=== PATIENT | male | born 1955 | race Caucasian/White ===

== ENCOUNTER → 2017-08-16 | Outpatient (CLI) | payer BC ==
[~2017-08-16] MED LIST: 00186-0370-20 IH; ASPI325T6 PO; ASPIRIN 32325 MG/TAB PO; ASPIRIN E.C. 8181 MG PO; BENICAR HCT 251 TAB PO; BENICAR5 MG PO; CEPHALEXIN500 M1 PO; COREG 25MG25 MG/TAB PO; COREG 6.256.25 MG/TA PO; CRESTOR40 MG PO; IMDUR 60MG60 MG/TAB PO; LIPITOR 80MG80 MG PO; LOPRESSOR 550 MG/TAB PO; NITROSTAT0.4 MG/TAB SL; OMEGA-3 FISH1200 MG PO; PLAVIX 75MG TAB75 MG PO; PREDNISONE20 MG PO; PRINZIDE 25 MG-1 TAB PO; PROAIR HFA0.09 MG/AC IH; RANEXA1000 MG PO; VENTOLIN0.09 MG IH; ZESTRIL 10MG10 MG PO
== END ==
LOC: COL.RAD 10:32
DX: R27.0 Ataxia, unspecified (principal); R42 Dizziness and giddiness
CPT/HCPCS: Q9967

== ENCOUNTER → 2018-04-27 | Outpatient (CLI) | payer BC ==
[2018-04-27 23:31] LABS: CORTISOL RANDOM 7 ug/dL (3-20)
[2018-04-28 15:41] LABS: URINE TOTAL VOLUME 2325 mL
[2018-04-28 16:03] LABS: CREATININE, serum 0.91 mg/dL (0.66-1.25); URINE PROTEIN:CREAT RATIO 0.04 (0.00-0.14)
[2018-04-28 16:10] LABS: POTASSIUM 3.6 mmol/L (3.4-5.0)
[2018-04-28 16:14] LABS: URINE CREATININE CLEARANCE 117.4 mL/min (97-137)
[2018-04-28 22:14] LABS: CATECHOLAMINES-HRS COLLECTED 24 (()); URINE VOLUME 2325 (())
[2018-04-28 23:05] LABS: MICROALBUMIN RANDOM 0.9 mg/dL (0.0-1.7)
[2018-05-01 10:46] LABS: RENIN,PLASMA 0.6 ng/mL/h (())
[2018-05-04 16:15] LABS: CORTISOL,URINE 28 mcg/24 h (3.5-45)
== END ==
LOC: COL.LAB 12:11
PROVIDERS: Internal Medicine Interventional Cardiology
DX: I10 Essential (primary) hypertension (principal)

== ENCOUNTER 2020-03-28 08:08 | Day surgery (SDC) | payer MEDICARE, OTHER ==
[~2020-03-28] VITALS: Ht 175.3 cm; Wt 126.9 kg
[2020-03-28] MEDS ORDERED: BYSTOLIC10 MG PO (08:29)
[2020-03-28] MEDS ORDERED: NORVASC 10MG10 MG PO (08:31)
[2020-03-28] MEDS ORDERED: BENICAR HCT 251 TAB PO (08:31)
[2020-03-28] MEDS ORDERED: COUMADIN 22.5 MG/TAB PO (08:32)
[2020-03-28] MEDS ORDERED: COUMADIN 3MG3 MG/TAB PO (08:33)
[2020-03-28] MEDS ORDERED: BREO IH (08:34)
[2020-03-28 09:02] VITALS: BP 128/89; PULSE 80; TEMP 97.8
[2020-03-28 09:13] LABS: INR 2.3 (0.8-3.0); PROTHROMBIN TIME 25.8 SECONDS (9.7-12.8)
[2020-03-28 11:00] VITALS: BP 98/70; PULSE 62
[2020-03-28 11:15] VITALS: BP 116/87; PULSE 63
[2020-03-28 11:30] VITALS: BP 111/82; PULSE 65
[2020-03-28 11:45] VITALS: BP 114/87; PULSE 60
[2020-03-28 12:00] VITALS: BP 119/84; PULSE 59
--- NOTE | 2020-03-28 12:25 | NUR ---
Pt tolerated procedure well, he has been gcs 15 for last hour, with stable vitals, has been able to swallow water with no problem. pt has been ambulatory to with steady gait. I have reviewed dc, rx and fu instructions with pt. Pt has fu with [facility] 04/03 and has an rx for multaq being called in to his pharmacy. pt denies any questions. iv is dc'd with cath intact. pt to exit via wheelchair.
== END 2020-03-28 13:19 | disposition home or self-care (01) ==
LOC: COL.CAR 08:08
PROVIDERS: Internal Medicine Interventional Cardiology
DX: I48.0 Paroxysmal atrial fibrillation (principal); I34.0 Nonrheumatic mitral (valve) insufficiency; I25.10 Atherosclerotic heart disease of native coronary artery without angina pectoris; I49.3 Ventricular premature depolarization; I10 Essential (primary) hypertension; J45.909 Unspecified asthma, uncomplicated; E78.5 Hyperlipidemia, unspecified; I49.5 Sick sinus syndrome; G47.33 Obstructive sleep apnea (adult) (pediatric); Z79.01 Long term (current) use of anticoagulants; Z88.8 Allergy status to other drugs, medicaments and biological substances; Z79.82 Long term (current) use of aspirin; Z95.0 Presence of cardiac pacemaker; Z88.7 Allergy status to serum and vaccine; Z20.828 Contact with and (suspected) exposure to other viral communicable diseases
CPT/HCPCS: J2704; J7030

== ENCOUNTER 2023-10-20 11:29 | Day surgery (SDC) | payer MEDICARE, OTHER ==
[~2023-10-20] VITALS: Ht 175.3 cm; Wt 134.6 kg
[~2023-10-20 11:29] MED LIST changes: +BREO IH; +BYSTOLIC10 MG PO; +COUMADIN 22.5 MG/TAB PO; +COUMADIN 3MG3 MG/TAB PO; +ELIQUIS 5MG PO; +LR 1,000 ML IV SCH; +MULTAQ400 MG PO; +NORVASC 10MG10 MG PO; +THE MEDICINE S200 M2 PO
[2023-10-20] MEDS ORDERED: MASON NATURAL2000 IU PO (11:58)
[2023-10-20] MEDS ORDERED: K2-4545 MCG PO (11:59)
[2023-10-20] MEDS ORDERED: NATURAL MAGNES200 MG PO (12:00)
[2023-10-20] MEDS ORDERED: BYSTOLIC10 MG PO (12:11)
[2023-10-20] MEDS ORDERED: NS Flush 10 ML SYRINGE PRN ICA (12:15)
[2023-10-20 12:21] VITALS: BP 123/93; PULSE 79; TEMP 98.5
[2023-10-20 12:29] LABS: HEMATOCRIT 42.2 % (42.0-52.0); HEMOGLOBIN 14.9 g/dl (13.5-18.0); MEAN CELL VOLUME 88 fl (80.0-100.0); MEAN CORPUSCULAR HEMOGLOBIN 31 pg (27-31); MEAN CORPUSCULAR HGB CONC 35 g/dl (33.0-37.0); MEAN PLATELET VOLUME 11.7 fl (7.4-10.4); PLATELET COUNT 158 K/mm3 (130-400); RED BLOOD COUNT 4.81 M/mm3 (4.20-5.60)
[2023-10-20 12:32] LABS: INR 1.7 (0.8-3.0); PROTHROMBIN TIME 18.5 SECONDS (9.7-12.8)
[2023-10-20 12:34] LABS: PARTIAL THROMBOPLASTIN TIME 38.8 SECONDS (26.0-37.0)
[2023-10-20 12:49] LABS: CALCIUM 9.1 mg/dL (8.4-10.2); CREATININE, serum 1.07 mg/dL (0.72-1.25); MAGNESIUM 1.6 mg/dL (1.6-2.6); POTASSIUM 3.6 mEq/L (3.5-4.5)
[2023-10-20 13:09] LABS: THYROID STIMULATING HORMONE 1.529 uIU/mL (0.350-4.940)
[2023-10-20 14:05] VITALS: BP 113/83; PULSE 69
--- NOTE | 2023-10-20 14:05 | NUR ---
Bedside handoff performed with ANNETTE Bazzi - pt AOx4, vitals stable, call light in reach
[2023-10-20 14:15] VITALS: BP 127/85; PULSE 69
[2023-10-20 14:30] VITALS: BP 137/91; PULSE 69
[2023-10-20 14:45] VITALS: BP 154/96; PULSE 69
[2023-10-20 15:00] VITALS: BP 163/106; PULSE 69
--- NOTE | 2023-10-20 15:10 | NUR ---
DC instructions reviewed with pt and sister. Both express understanding. Pt has drank water, no difficulty swallowing. He has denied desire for food, stating they will being going out to lunch. IV DC'd, site wrapped in coban. Pt is steay on feet in room. He is assisted out to sister's car by wheelchair with belongings.
[2023-10-20] MEDS ORDERED: NS Flush 10 ML SYRINGE BID ICA SCH (21:00)
== END 2023-10-20 15:10 | disposition home or self-care (01) ==
LOC: COL.CAR 11:29
PROVIDERS: Internal Medicine Cardiovascular Disease
DX: I48.0 Paroxysmal atrial fibrillation (principal); J45.909 Unspecified asthma, uncomplicated; I10 Essential (primary) hypertension; E66.01 Morbid (severe) obesity due to excess calories
CPT/HCPCS: J2704; J7120